=== PATIENT | male | born 1985 | race Caucasian/White ===

== ENCOUNTER 2017-11-07 10:11 | Emergency (ER) | payer SELFPAY ==
[~2017-11-07] VITALS: Ht 190.5 cm; Wt 89.4 kg
[2017-11-07 10:38] VITALS: BP 137/89; Ht 190.5 cm; Wt 89.4 kg
== END 2017-11-07 13:59 | disposition left against medical advice (07) ==
LOC: ED 10:11
DX: Z53.21 Procedure and treatment not carried out due to patient leaving prior to being seen by health care provider (principal)